=== PATIENT | male | born 1945 | race Caucasian/White ===

== ENCOUNTER → 2022-04-30 | Outpatient (CLI) | payer OTHER, MEDICARE, BC ==
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
== END | disposition home or self-care (01) ==
LOC: RADMRIMAIN 16:16
PROVIDERS: ATTEND Family Medicine
DX: M51.26 Other intervertebral disc displacement, lumbar region (principal); M47.816 Spondylosis without myelopathy or radiculopathy, lumbar region
CPT/HCPCS: 72148